=== PATIENT | female | born 1990 | race American Indian/Alaskan Native ===

== ENCOUNTER 2016-10-06 01:05 | Emergency (ER) | payer SELFPAY ==
[2016-10-06 01:23] VITALS: BP 122/86
[2016-10-06] MEDS ORDERED: NORCO 5/325 ONE (02:15)
[2016-10-06] MEDS ORDERED: NORCO 5/325 PO ONE (02:15)
[2016-10-06] MEDS ORDERED: LIDOCAINE VISCOUS 2% ONE (04:25)
[2016-10-06] MEDS ORDERED: LIDOCAINE VISCOUS 2% TP ONE (04:46)
--- NOTE | 2016-10-06 04:51 | Emergency Department Report ---
ED General Adult HPI - General Chief complaint: Skin/Abscess/Foreign Body Stated complaint: BOIL ON BUTTOCKS Time Seen by Provider: 10/06/16 03:46 Source: patient Mode of arrival: Ambulatory Limitations: No Limitations - History of Present Illness Initial comments: rectal pain x 4 days Onset/Timin -: days(s) Location: buttocks Radiation: non-radiation Severity scale (0 -10): 5 Quality: burning, other (itching ) Consistency: intermittent Worsens with: other (palpation , sitting ) Associated Symptoms: denies: confusion, chest pain, cough, diaphoresis, fever/ chills, headaches, loss of appetite, malaise, nausea/vomiting, rash, seizure, shortness of breath, syncope, weakness Treatments Prior to Arrival: none - Related Data Previous Rx's Medication Instructions Recorded Last Taken Type Lidocaine Topical 2% [Xylocaine 30 ml MM BID #1 tube 10/06/16 Unknown Rx Topical 2%] Pramoxine HCl [Proctofoam] 15 gm TP BID #1 unit 10/06/16 Unknown Rx Allergies Allergy/AdvReac Type Severity Reaction Status Date / Time No Known Allergies Allergy Verified 10/06/16 02:27 ED Review of Systems ROS: Stated complaint: BOIL ON BUTTOCKS Other details as noted in HPI Constitutional: denies: chills, fever Eyes: denies: eye pain, eye discharge, vision change ENT: denies: ear pain, throat pain Respiratory: denies: cough, shortness of breath, wheezing Cardiovascular: denies: chest pain, palpitations Endocrine: no symptoms reported Gastrointestinal: denies: abdominal pain, nausea, diarrhea, constipation, hematemesis Genitourinary: denies: urgency, dysuria, discharge Musculoskeletal: denies: back pain, joint swelling, arthralgia Skin: lesions (abscess rectum ) Neurological: denies: headache, weakness, paresthesias Psychiatric: denies: anxiety, depression Hematological/Lymphatic: denies: easy bleeding, easy bruising ED Past Medical Hx - Past Medical History Previous Medical History?: No Additional medical history: previous abcess buttocks - Surgical History Past Surgical History?: No - Social History Smoking Status: Current Every Day Smoker Substance Use Type: Marijuana - Medications Home Medications: Home Medications Medication Instructions Recorded Confirmed Last Taken Type Lidocaine Topical 2% [Xylocaine 30 ml MM BID #1 tube 08/18/17 Unknown Rx Topical 2%] Pramoxine HCl [Proctofoam] 15 gm TP BID #1 unit 10/06/16 Unknown Rx ED Physical Exam - General Limitations: No Limitations General appearance: alert, in no apparent distress - Head Head exam: Present: atraumatic, normocephalic - Eye Eye exam: Present: normal appearance - ENT ENT exam: Present: mucous membranes moist - Neck Neck exam: Present: normal inspection - Respiratory Respiratory exam: Present: normal lung sounds bilaterally. Absent: respiratory distress - Cardiovascular Cardiovascular Exam: Present: regular rate, normal rhythm. Absent: systolic murmur, diastolic murmur, rubs, gallop - GI/Abdominal GI/Abdominal exam: Present: soft, normal bowel sounds - Rectal Rectal exam: Present: normal rectal tone, hemorrhoids (external hemorrhoid 9 ocock nonthromboses painful to touch no erythema no abscess no internal hemorrhoid ). Absent: black stool, bloody stool, mass - Extremities Exam Extremities exam: Present: normal inspection - Back Exam Back exam: Present: normal inspection - Neurological Exam Neurological exam: Present: alert, oriented X3 - Psychiatric Psychiatric exam: Present: normal affect, normal mood - Skin Skin exam: Present: warm, dry, intact, normal color. Absent: rash ED Course Vital Signs 10/06/16 01:19 Temperature 98.7 F Pulse Rate 92 H Respiratory 16 Rate Blood Pressure 122/86 ED Medical Decision Making - Medical Decision Making pt with external hemorrhoid nonthrombosed no cellulitis no erythema no abcess no internal hemorrhoid will tx with top steriod per rectum lidocaine jelly prn for pain , follow up with pcp if not improved in 1 week pt verbalized agreement and understanding with treatment plan there is no abscess, chaprone used for this case. Critical care attestation.: If time is entered above; I have spent that time in minutes in the direct care of this critically ill patient, excluding procedure time. ED Disposition Clinical Impression: Hemorrhoids, external without complications Disposition: - TO HOME OR SELFCARE Is pt being admited?: No Does the pt Need Aspirin: No Condition: Good Instructions: Hemorrhoids (ED) Prescriptions: Lidocaine Topical 2% [Xylocaine Topical 2%] 30 ml MM BID #1 tube Pramoxine HCl [Proctofoam] 15 gm TP BID #1 unit Referrals: PRIMARY CARE, [Primary Care Provider] - 3-5 Days Forms: Work/School Release Form(ED) Time of Disposition: 04:56
== END 2016-10-06 05:05 | disposition home or self-care (01) ==
LOC: ED 01:05
DX: K64.4 Residual hemorrhoidal skin tags (principal); F17.210 Nicotine dependence, cigarettes, uncomplicated; F12.10 Cannabis abuse, uncomplicated
CPT/HCPCS: 99282